=== PATIENT | female | born 2000 | race Caucasian/White ===

== ENCOUNTER 2020-01-31 17:04 | Outpatient (CLI) | payer OTHER, SELFPAY ==
--- NOTE | ~2020-01-31 | US_ITS ---
US venous doppler LE RT DATE: 01/31/2020 17:58 INDICATION: Right lower extremity localized edema TECHNIQUE: Real-time and color flow imaging and Doppler analysis COMPARISON: None FINDINGS: There is spontaneous and phasic flow and normal augmentation and color flow signal and norm al compression of the deep veins of the right lower extremity. The right greater saphenous vein is pa tent. IMPRESSION: No evidence of deep venous thrombosis of right lower extremity Reviewed, dictated and finalized at [facility]. Reviewed, dictated and finalized at [facility].
== END 2020-01-31 17:05 | disposition home or self-care (01) ==
PROVIDERS: PCP Physician Assistant; Visit Provider Physician Assistant
DX: R60.0 Localized edema (principal)
CPT/HCPCS: 93971

== ENCOUNTER 2022-01-12 08:29 | Emergency (ER) | payer OTHER, SELFPAY ==
--- NOTE | ~2022-01-12 | CT_ITS ---
EXAMINATION: CT abdomen pelvis wo con DATE: 01/12/2022 09:57 INDICATION: Abdominal pain and vomiting TECHNIQUE: Computed tomography (CT) of the abdomen and pelvis was performed without intravenous contr ast. The dose-length product (DLP) was 269.10 mGy-cm. Automated exposure control and iterative recons truction technique were employed. COMPARISON: None FINDINGS: The lung bases are clear. The heart size is normal. Within the limitations of noncontrast e xamination, the liver, spleen, pancreas, gallbladder, and adrenal glands are normal. The kidneys are unremarkable. There is a 4 mm left pelvic calcification. There is no hydronephrosis or hydroureter. N o pathologically enlarged abdominal or pelvic lymph nodes are identified. There is no free intraperit andersen gas or evidence of bowel obstruction. There is a possible bezoar of the distal descending colon . There is a moderate volume of stool proximally in the colon and absence of stool beyond the distal colon. IMPRESSION: 1. Possible bezoar of the distal descending colon. 2. 4 mm left pelvic calcification which could reflect a phlebolith or possibly left distal ureteral s tone. Absence of hydroureteronephrosis and hematuria suggests the former. Reviewed, dictated and finalized at [facility]. IMPRESSION: 1. Possible bezoar of the distal descending colon. 2. 4 mm left pelvic calcification which could reflect a phlebolith or possibly left distal ureteral stone. Absence of hydroureteronephrosis and hematuria sugg ests the former.
[2022-01-12 08:32] VITALS: BP 133/94; PULSE 90; RESP 20; TEMP 36.4; O2SAT 100
[2022-01-12 09:01] LABS: Basophils Absolute Auto 0.1 K/mm3 (0.0-0.1); Basophils Percent Auto 1.1 % (0.2-1.2); Eosinophils Absolute Auto 0.2 K/mm3 (0-0.3); Eosinophils Percent Auto 2.6 % (0-4.4); Hematocrit 41.7 % (37.0-47.0); Hemoglobin 14.6 g/dL (12.0-15.0); Immature Granulocyte Absolute 0.01 K/mm3 (0.00-0.031); Immature Granulocyte Percent A 0.1 % (0-0.5); Lymphocytes Absolute Auto 2.21 K/mm3 (0.9-3.2); Lymphocytes Percent Auto 30.5 % (18.3-44.2); Mean Corpuscular Hemoglobin 29.2 pg (26-34); Mean Corpuscular Volume 83.4 fl (80-100); Mean Platelet Volume 9.3 fl (7.4-10.4); Monocytes Absolute Auto 0.5 K/mm3 (0.1-0.6); Monocytes Percent Auto 6.4 % (2.6-8.5); Neutrophils Absolute Auto 4.3 K/mm3 (1.3-6.7); Neutrophils Percent Auto 59.3 % (45.5-73.1); Platelet Count Result 373 k/mm3 (150-375); Red Cell Distribution Width 12.5 % (11.5-14.5); White Blood Count 7.2 K/mm3 (4.5-10.0)
--- NOTE | 2022-01-12 09:10 | ED.ABDPAIN ---
HPI - Abdominal Pain General Chief Complaint: Abdominal Pain Stated Complaint: ABD pain Time Seen by Provider: 01/12/22 09:03 Source: patient Mode of arrival: ambulatory Limitations: no limitations History of Present Illness HPI narrative: 21-year-old female presents today with history of abdominal pain, nausea, vomiting since she woke up this morning. Patient says for last couple days she has not been feeling great but this morning when she woke up she started with abdominal pain which is what brought her in. Patient is abdominal pain is low left and in the pelvic area. Left menstrual period 2 days ago. Patient denies any fevers, cough, sick contacts. Patient denies any history of abdominal surgeries. Patient denies any dysuria, urinary frequency, or back pain. Related Data Home Medications Medication Instructions Recorded Confirmed sertraline 50 mg tablet tablet 01/12/22 Allergies Allergy/AdvReac Type Severity Reaction Status Date / Time No Known Allergies Allergy Verified 01/12/22 08:43 Review of Systems Review of Systems: CONSTITUTIONAL: Denies fever, chills, or sweats. EYES: Denies visual changes, redness, or discharge. ENT: Denies rhinorrhea, congestion, sore throat, or otalgia. CARDIOVASCULAR: Denies chest pain, palpitations, or edema. RESPIRATORY: Denies cough or dyspnea. GASTROINTESTINAL: Abdominal pain, nausea, vomiting. Denies diarrhea. GENITOURINARY: Denies dysuria or hematuria. SKIN: Denies rash or itching. MUSCULOSKELETAL: Denies back pain, joint pain, or myalgia. NEUROLOGIC: Denies headache, numbness, dizziness, or weakness. PSYCHIATRIC: Denies anxiety or depression. PMFSH Family History Family History Mother Family history of blood dyscrasia Grandparent Asthma Family history of lymphoma Family history of heart disease in male family member before age 55 Social History Social History Smoking status: Never smoker Alcohol intake: never Exam Narrative: GENERAL: Well-appearing, well-nourished, and in no acute distress. HEAD: Normocephalic, atraumatic. EYES: PERRLA and EOMI. ENT: Nares clear, no rhinorrhea or epistaxis. Mucous membranes moist. Oropharynx without tonsillar hypertrophy exudate or other lesions. Bilateral TMs pearly valdes nonbulging NECK: Supple. No adenopathy or masses. No carotid bruits or JVD CHEST: Clear to auscultation. No respiratory distress. No wheezes rales or rhonchi HEART: Regular rate and rhythm. No murmur heard. Normal peripheral pulses. ABDOMEN: Soft, nondistended, normal active bowel sounds. Tender to pelvic region and left lower quadrant. EXTREMITIES: Normal range of motion. No edema. SKIN: Warm, dry, no rash. NEURO: No focal deficits. Alert and oriented x3. PSYCH: Normal mood and affect. Course Course Emergency Course: Patient with improvement after IVF, zofran, and toradol. Labs and Ct reviewed. Patient aware surgery consulted. Discussed discharge after fleets enema and Magnesium citrate. Patient and mother in agreement with plan and will return with any new or worsening symptoms. Consultations Consultation #1: Consulted Dr. Morris. Ct discussed. He is aware patient currently not ill appearing and could be discharged home. Plan for discharge at this time. Follow up with GI and to return with any new or worsening symptoms. Vital Signs Vital signs: Vital Signs Temperature 36.4 C 01/12/22 08:32 Pulse Rate 90 01/12/22 08:32 Respiratory Rate 20 01/12/22 08:32 Blood Pressure 133/94 H 01/12/22 08:32 Pulse Oximetry 100 01/12/22 08:32 Oxygen Delivery Room Air 01/12/22 08:32 Temperature 36.4 C 01/12/22 08:32 Pulse Rate 75 01/12/22 11:10 Respiratory Rate 16 01/12/22 11:10 Blood Pressure 107/68 01/12/22 11:10 Pulse Oximetry 100 01/12/22 11:10 Oxygen Delivery Room Air 01/12/22 08:32
[2022-01-12 09:11] LABS: Mucus Urine Rare /lpf; RBC Urine 0-2 /hpf (0-2); Squamous Epithelial Cell Urine Few /hpf (Few); WBC Urine 0-3 /hpf
[2022-01-12 09:12] LABS: Appearance Urine Clear (Clear); Bilirubin Urine 1+ (Negative); Blood Urine Negative (Negative); Color Urine Yellow (Yellow); Glucose Urine UA Negative (Negative); Ketones Urine Trace mg/dL (Negative); Leukocyte Esterase Ur Negative LEU/UL (Negative); Nitrate Urine Negative (Negative); Protein Urine Trace mg/dL (Negative); Specific Grav Ur 1.025 (1.001-1.035); Urobilinogen Urine 0.2 mg/dL (<2.0)
[2022-01-12 09:13] LABS: Alanine Aminotransferase 16 U/L (6-35); Albumin Level 4.7 g/dL (3.5-5.1); Alkaline Phosphatase 51 U/L (38-126); Anion Gap 8 mmol/L (8-16); Aspartate Amino Transferase 23 U/L (14-36); Bilirubin,Total 1.8 mg/dL (0.2-1.3); Blood Urea Nitrogen 15 mg/dL (7-17); Calcium 9.7 mg/dL (8.4-10.2); Carbon Dioxide 20 mmol/L (22-30); Chloride 110 mmol/L (98-107); Estimated Glomerular Filt Rate > 60; Glucose 111 mg/dL (65-110); Lipase 40 U/L (23-300); Potassium 3.7 mmol/L (3.4-5.0); Sodium 138 mmol/L (137-145)
[2022-01-12 09:23] LABS: Add Urine Microscopic? YES
[2022-01-12] MEDS: LACTATED RINGERS 1,000 ML 999 ML IV CONT (09:59)
[2022-01-12] MEDS: KETOROLAC 30 MG/ML VIAL (*BKC) IV PUSH (09:59)
[2022-01-12] MEDS: ONDANSETRON INJ 4 MG/2 ML VIAL IV PUSH (09:59)
[2022-01-12 11:10] VITALS: BP 107/68; PULSE 75; RESP 16; O2SAT 100
[2022-01-12] MEDS: ONDANSETRON HCL ODT 4 MG TABLET PO (13:41)
[2022-01-12] MEDS: MAGNESIUM CITRATE 300 ML BTL PO (13:42)
== END 2022-01-12 13:47 | disposition home or self-care (01) ==
PROVIDERS: Emergency Medicine; Emergency Provider Nurse Practitioner Family; PCP Physician Assistant
DX: K59.00 Constipation, unspecified (principal); T18.4XXA Foreign body in colon, initial encounter
CPT/HCPCS: 36415; 74176; 80053; 81001; 81025; 83690; 85025; 96374; 96375; 99284; A9270; J1885; J2405; J7120